=== PATIENT | male | born 1965 | race Caucasian/White ===

== ENCOUNTER 2024-07-26 09:10 | Inpatient (IN) | payer MEDICAID ==
[~2024-07-26] VITALS: Ht 167.6 cm; Wt 90.7 kg
[2024-07-26] MEDS: VANCOMYCIN 1G PREMIX 200 ML IV ONE (10:15)
[2024-07-26] MEDS: SODIUM CHLORIDE 0.9% (SEPSIS BOLUS) IV ONE (10:19)
[2024-07-26] MEDS: PIPERACILLIN/TAZO 3.375G/50ML 50 ML IV ONE (10:29)
[2024-07-26 10:39] LABS: POTASSIUM 3.7 mEq/L (3.5-5.1)
[2024-07-26 10:40] LABS: CALCIUM 7.2 mg/dL (8.7-10.4)
[2024-07-26 10:42] LABS: HEMATOCRIT. 28.3 % (42.0-52.0); HEMOGLOBIN. 9.6 g/dL (14.0-18.0); MEAN CORPUSCULAR HEMOGLOBIN 37.9 pg (28.0-32.0); MEAN CORPUSCULAR VOLUME 111.5 fL (80.0-94.0); MEAN PLATELET VOLUME 9.6 fl (7.4-10.4); RED BLOOD CELL COUNT 2.54 mill/uL (4.7-6.1); RED CELL DISTRIBUTION WIDTH 15.8 % (11.6-14.6); WHITE BLOOD COUNT 13.5 x1000/uL (4.5-11.0)
[2024-07-26 10:44] LABS: CREATININE 3.5 mg/dL (0.6-1.3)
[2024-07-26] MEDS: ATROPINE SULFATE 1MG/10ML SYR IV ONE (10:45)
[2024-07-26] MEDS: ETOMIDATE 2MG/ML 10ML VIAL IV ONE (10:47)
[2024-07-26 10:48] LABS: DIFFERENTIAL COMMENT 1; INR 3.2; PROTHROMBIN TIME 33.2 sec (9.6-11.0)
[2024-07-26] MEDS: SUCCINYLCHOLINE CHLORIDE 200MG/10ML IV ONE (10:48)
[2024-07-26 10:51] LABS: PLATELET 23 x1000/uL (130-400)
[2024-07-26 11:05] LABS: LACTIC ACID 3.3 mmol/L (0.4-2.0)
[2024-07-26 11:12] VITALS: PULSE 78; RESP 16; O2SAT 94
[2024-07-26 11:17] LABS: AMMONIA 126 uMol/L (<32)
[2024-07-26] MEDS ORDERED: MIDAZOLAM 100MG/100ML PREMIX IV PRN (11:30)
[2024-07-26 11:51] LABS: PLATELET ESTIMATE MARKEDLY DECREASED
[2024-07-26 12:04] LABS: BG BASE EXCESS -16.8 mmol/L (-2.0-3.0); BG CARBOXYHEMOGLOBIN 0.6 % (0.5-1.5); BG DEOXYHEMOGLOBIN 7.1 % (0.0-5.0); BG FRACTION INSPIRED OXYGEN 100; BG HCO3 ACT 14.2 mmol/L (21.0-28.0); BG METHEMOGLOBIN 0.3 % (0.5-1.5); BG OXYGEN SATURATION 92.8 % (94.0-98.0); BG PCO2 57.2 mmHg (35.0-48.0); BG PH 7.012 (7.350-7.450); BG PO2 98.4 mmHg (83.0-108.0); BG SAMPLE SITE RIGHT BRACHIAL; BG TOTAL HEMOGLOBIN 11.4 g/dL (13.5-17.5); BG VENT MODE VENT - AC
[2024-07-26] MEDS: NOREPINEPHRINE 8MG/250ML PMX 250 ML IV ONE (12:32)
[2024-07-26] MEDS: LACTULOSE 20G/30ML UDC PO ONE (13:00)
[2024-07-26] MEDS ORDERED: NOREPINEPHRINE 8MG/250ML PMX 250 ML IV ONE (13:47)
[2024-07-26] MEDS: LIDOCAINE HCL 1% 10 MG/ML 10ML VIAL ONE (13:55)
[2024-07-26 14:00] VITALS: PULSE 80; RESP 20; O2SAT 96; O2SAT 97
[2024-07-26] MEDS: MIDAZOLAM HCL 100 MG in DEXT 5% WATER 80 ML IV ONE (14:00)
[2024-07-26] MEDS ORDERED: MIDAZOLAM 100MG/100ML PMX 100 ML IV PRN ×2 (16:15→16:30)
[2024-07-26 16:19] VITALS: PULSE 94; RESP 20; O2SAT 95
[2024-07-26] MEDS ORDERED: MAGNESIUM/ALUMINUM HYDROXIDE/SIMETHICONE 30ML UDC PO PRN (17:00)
[2024-07-26] MEDS ORDERED: LORAZEPAM 1MG TABLET PO PRN ×6 (17:00)
[2024-07-26] MEDS ORDERED: PIPERACILLIN/TAZOBACTAM 3.375 G in DEXTROSE 5% WATER 50 ML IV SCH (17:00)
[2024-07-26] MEDS ORDERED: PHENYLEPHRINE 100 MG in DEXT 5% WATER 240 ML IV PRN (17:00)
[2024-07-26] MEDS ORDERED: HYDROCODONE/ACETAMINOPHEN 5/325MG TABLET PO PRN (17:00)
[2024-07-26] MEDS ORDERED: GUAIFENESIN 200MG/10ML SUGAR FREE UDC PO PRN (17:00)
[2024-07-26] MEDS ORDERED: IPRATROPIUM/ALBUTEROL 0.5-3(2.5)MG/3ML NEB HHN PRN (17:00)
[2024-07-26] MEDS ORDERED: CHLORDIAZEPOXIDE 25MG CAPSULE PO PRN ×6 (17:00)
[2024-07-26] MEDS ORDERED: CLONIDINE 0.1MG TABLET PO PRN (17:00)
[2024-07-26] MEDS ORDERED: THIAMINE HCL 100 MG/1 ML 2ML VIAL IV SCH (17:00)
[2024-07-26] MEDS ORDERED: NA PHOS,M-B/NA PHOS,DI-BA ENEMA 118ML PR PRN (17:00)
[2024-07-26] MEDS ORDERED: DIPHENHYDRAMINE 50MG/ML VIAL IV PRN (17:00)
[2024-07-26] MEDS ORDERED: DOCUSATE SODIUM 100MG CAPSULE PO PRN (17:00)
[2024-07-26 17:05] LABS: ALANINE AMINOTRANSFERASE 149 IU/L (10-49); ALBUMIN 1.5 g/dL (3.2-4.8); ASPARTATE AMINOTRANSFERASE 214 IU/L (<34); BILIRUBIN DIRECT 9.6 mg/dL (<=3.0); PROTEIN TOTAL 5.8 g/dL (6.0-8.3)
[2024-07-26 17:13] LABS: CLARITY URINE TURBID (CLEAR); COLOR URINE DARK YELLOW (YELLOW); GLUCOSE URINE NEGATIVE (NEGATIVE); KETONES URINE NEGATIVE (NEGATIVE); LEUKOCYTE ESTERASE URINE 1+ (NEGATIVE); NITRITE URINE NEGATIVE (NEGATIVE); OCCULT BLOOD URINE 3+ (NEGATIVE); PH URINE 5.5 (4.5-8.0); PROTEIN URINE 2+ (NEGATIVE); SPECIFIC GRAVITY URINE 1.013 (1.005-1.030)
[2024-07-26] MEDS: DEXTROSE 50% WATER 50ML SYRINGE IV ONE (17:20)
[2024-07-26] MEDS: NOREPINEPHRINE 8MG/250ML PMX 250 ML IV PRN (17:29)
[2024-07-26 17:31] LABS: BACTERIA URINE 2+; RBC URINE 15-25 /hpf (0-2); SQUAMOUS EPITHELIAL CELL URINE 2+ /lpf (RARE/1+)
[2024-07-26] MEDS ORDERED: NALOXONE HCL 0.4MG/ML VIAL IV PRN (17:45)
[2024-07-26] MEDS: PANTOPRAZOLE SODIUM 40 MG/VIAL IV NR (17:52)
[2024-07-26] MEDS: PIPERACILLIN/TAZO 3.375G/50ML IV NR (18:00)
[2024-07-26] MEDS: PHENYLEPHRINE 100 MG in DEXT 5% WATER 240 ML IV PRN (18:30)
[2024-07-26 18:36] LABS: IRON 87 ug/dL (65-175)
[2024-07-26 18:39] LABS: TOTAL IRON BINDING CAPACITY 107 ug/dl (250-425)
[2024-07-26 18:43] LABS: FOLIC ACID (FOLATE) SERUM 12.06 ng/mL (>5.38)
[2024-07-26 18:44] LABS: VITAMIN B12 SERUM > 2000 pg/mL (211-911)
[2024-07-26] MEDS: VANCOMYCIN 750MG/150ML (BAXTER) IV NR (18:44)
[2024-07-26 18:49] VITALS: PULSE 102; RESP 20; O2SAT 94
[2024-07-26] MEDS ORDERED: LACTULOSE ENEMA 1,000ML BOTTLE PR SCH (19:00)
[2024-07-26 19:11] LABS: BG CARBOXYHEMOGLOBIN 0.6 % (0.5-1.5); BG FRACTION INSPIRED OXYGEN 100; BG HCO3 ACT 9.1 mmol/L (21.0-28.0); BG METHEMOGLOBIN 0.1 % (0.5-1.5); BG OXYGEN SATURATION 86.9 % (94.0-98.0); BG OXYHEMOGLOBIN 86.3 % (94.0-98.0); BG PCO2 48.3 mmHg (35.0-48.0); BG PH 6.893 (7.350-7.450); BG PO2 83.5 mmHg (83.0-108.0); BG SAMPLE SITE RIGHT BRACHIAL; BG TOTAL HEMOGLOBIN 9.7 g/dL (13.5-17.5); BG VENT MODE VENT - AC
[2024-07-26] MEDS: SODIUM BICARBONATE 8.4% 50MEQ/50ML SYR IV NR ×2 (20:06→22:30)
[2024-07-26] MEDS: DEXT 5% IV SCH (20:07)
[2024-07-26] MEDS: THIAMINE HCL IV SCH (20:07)
[2024-07-26] MEDS: WATER IV SCH (20:07)
[2024-07-26] MEDS ORDERED: EPINEPHRINE 10 MG in SODIUM CHLORIDE 0.9% 240 ML IV PRN ×3 (20:30→22:00)
[2024-07-26] MEDS ORDERED: FENOFIBRATE NANOCRYSTALLIZED 48MG TABLET NG SCH (21:00)
[2024-07-26 21:04] VITALS: PULSE 89; RESP 21; O2SAT 92
[2024-07-26] MEDS ORDERED: VASOPRESSIN 20 UNIT in SODIUM CHLORIDE 0.9% 99 ML IV PRN (21:15)
[2024-07-26] MEDS: VASOPRESSIN 20 UNIT in SODIUM CHLORIDE 0.9% 99 ML IV PRN (21:28)
[2024-07-26 22:00] VITALS: PULSE 93; RESP 20; O2SAT 77
[2024-07-26] MEDS: HYDROCORTISONE SOD SUCCINATE 100 MG/2 ML VIAL IV SCH (22:30)
[2024-07-26] MEDS: EPINEPHRINE 10 MG in SODIUM CHLORIDE 0.9% 240 ML IV PRN (22:35)
[2024-07-26] MEDS: SODIUM BICARBONATE 150 MEQ in SODIUM CHLORIDE 0.45% 850 ML IV SCH (22:35)
[2024-07-27] VITALS (13 sets, daily range): BP systolic 32–83; BP diastolic 10–58; PULSE 0–109; RESP 20–27; TEMP 33.1–36; O2SAT 71–78
[2024-07-27] MEDS: NOREPINEPHRINE 8MG/250ML PMX 250 ML IV PRN (02:57)
[2024-07-27] MEDS ORDERED: NOREPINEPHRINE 32 MG in DEXT 5% WATER 218 ML IV PRN (03:00)
[2024-07-27] MEDS: NOREPINEPHRINE 32 MG in DEXT 5% WATER 218 ML IV PRN (03:44)
[2024-07-27] MEDS: SODIUM BICARBONATE 150 MEQ in SODIUM CHLORIDE 0.45% 850 ML IV SCH (06:03)
[2024-07-27 07:12] LABS: HEMATOCRIT 25.5 % (42.0-52.0); HEMOGLOBIN 7.9 g/dL (14.0-18.0); MEAN CORPUSCULAR HEMOGLOBIN 38.6 pg (28.0-32.0); MEAN CORPUSCULAR HGB CONC 30.9 g/dL (31.0-37.0); MEAN CORPUSCULAR VOLUME 124.9 fL (80.0-94.0); RED BLOOD CELL COUNT 2.04 mill/uL (4.7-6.1); RED CELL DISTRIBUTION WIDTH 18.3 % (11.6-14.6); WHITE BLOOD COUNT 18.1 x1000/uL (4.5-11.0)
[2024-07-27 07:23] LABS: AMMONIA 648 uMol/L (<32)
[2024-07-27 07:28] LABS: PLATELET 42 x1000/uL (130-400)
[2024-07-27] MEDS ORDERED: DOPAMINE 400MG/250ML PREMIX 250 ML IV PRN (08:00)
[2024-07-27 08:03] LABS: CARBON DIOXIDE 11 mEq/L (21-32); CHLORIDE 102 mEq/L (98-107); POTASSIUM 5.1 mEq/L (3.5-5.1)
[2024-07-27 08:04] LABS: CALCIUM 6.8 mg/dL (8.7-10.4)
[2024-07-27 08:08] LABS: CREATININE 3.6 mg/dL (0.6-1.3)
[2024-07-27 08:10] LABS: ALANINE AMINOTRANSFERASE 801 IU/L (10-49); ALBUMIN 1.3 g/dL (3.2-4.8); ASPARTATE AMINOTRANSFERASE > 1000 IU/L (<34)
[2024-07-27 08:11] LABS: BILIRUBIN DIRECT 7.7 mg/dL (<=3.0); PROTEIN TOTAL 5.4 g/dL (6.0-8.3)
[2024-07-27 08:31] LABS: SODIUM 136 mEq/L (136-145)
[2024-07-27 08:32] LABS: GLUCOSE 45 mg/dL (70-105)
[2024-07-27 08:33] LABS: UREA NITROGEN BLOOD 105 mg/dL (9-23)
[2024-07-27 08:34] LABS: BILIRUBIN TOTAL 10.9 mg/dL (0.1-1.0); PHOSPHORUS 9.5 mg/dL (2.5-4.9)
[2024-07-27] MEDS ORDERED: THIAMINE HCL 100 MG/1 ML 2ML VIAL IV SCH (09:00)
[2024-07-27] MEDS ORDERED: MULTIVITAMINS,THER W-MINERALS TABLET NG SCH (09:00)
[2024-07-27] MEDS ORDERED: MULTIVITAMINS,THER W-MINERALS TABLET PO SCH (09:00)
[2024-07-27] MEDS ORDERED: FOLIC ACID 1MG TABLET NG SCH (09:00)
[2024-07-27] MEDS ORDERED: FOLIC ACID 1MG TABLET PO SCH (09:00)
[2024-07-27] MEDS ORDERED: PANTOPRAZOLE SODIUM 40 MG/VIAL IV SCH (09:00)
[2024-07-27] MEDS ORDERED: PIPERACILLIN/TAZO 3.375G/50ML IV SCH (09:00)
[2024-07-27] MEDS ORDERED: LACTULOSE 20G/30ML UDC PO SCH (12:00)
[2024-07-29] MEDS ORDERED: THIAMINE HCL 100MG TABLET PO SCH ×2 (09:00)
== END 2024-07-27 09:00 | DRG 720 ==
LOC: ER 09:22 → CVICU 13:50 → EDBEDREQ 13:52 → EDBEDREQTM 13:52 → CVICU 07-27 04:12
PROVIDERS: ADMIT Internal Medicine; ATTEND Internal Medicine
PROC: 02HV33Z Insertion of Infusion Device into Superior Vena Cava, Percutaneous Approach (ICD-10-PCS; principal; 2024-07-26)
PROC: 5A1935Z Respiratory Ventilation, Less than 24 Consecutive Hours (ICD-10-PCS; 2024-07-26)
PROC: B548ZZA Ultrasonography of Superior Vena Cava, Guidance (ICD-10-PCS; 2024-07-26)
PROC: 0BH17EZ Insertion of Endotracheal Airway into Trachea, Via Natural or Artificial Opening (ICD-10-PCS; 2024-07-26)
PROC: 5A12012 Performance of Cardiac Output, Single, Manual (ICD-10-PCS; 2024-07-26)
DX: A41.9 Sepsis, unspecified organism (principal); J96.01 Acute respiratory failure with hypoxia; K76.7 Hepatorenal syndrome; I46.9 Cardiac arrest, cause unspecified; R65.21 Severe sepsis with septic shock; K70.40 Alcoholic hepatic failure without coma; G92.8 Other toxic encephalopathy; J18.9 Pneumonia, unspecified organism; Z66 Do not resuscitate; D69.6 Thrombocytopenia, unspecified; E87.1 Hypo-osmolality and hyponatremia; F10.20 Alcohol dependence, uncomplicated; K76.82 Hepatic encephalopathy; N18.9 Chronic kidney disease, unspecified; N39.0 Urinary tract infection, site not specified; Y90.9 Presence of alcohol in blood, level not specified; E16.2 Hypoglycemia, unspecified; D53.9 Nutritional anemia, unspecified; L97.829 Non-pressure chronic ulcer of other part of left lower leg with unspecified severity; L97.819 Non-pressure chronic ulcer of other part of right lower leg with unspecified severity; Z82.49 Family history of ischemic heart disease and other diseases of the circulatory system; Z83.3 Family history of diabetes mellitus
CPT/HCPCS: 31500; 36415; 36573; 36600; 71045; 80048; 80076; 81003; 82140; 82375; 82607; 82746; 82805; 82962; 83540; 83550; 83605; 83735; 83930; 84100; 84145; 85025; 85027; 93005; 94002; 94003; 94070; 94664; 99291; A4606; C1725; J1265; J1720; J2003; J2250; J2470; J2543; J3370; J3411; J3490; J7030; J7050; J7060